=== PATIENT | female | born 1960 | race Caucasian/White ===

== ENCOUNTER → 2017-10-05 | Outpatient (CLI) | payer OTHER ==
[~2017-10-05] MED LIST: ALPR0.25 PO; CHOL1TAB42 PO; EPP3/2 IM; FEXO1TAB49 PO; GLC/500 PO; IRBE-37 PO; LEVO75TA PO; OXYM0.0592 NAE; PRENTAB26 PO; RANI150T85 PO; SPIR25TA PO; TAMS0.4C38 PO; TRAMTAB5 PO; VITAMIN B12 SC
== END | disposition home or self-care (01) ==
LOC: C.LABSPEC 17:03
PROVIDERS: ATTEND Urology
DX: N20.0 Calculus of kidney (principal); R31.29 Other microscopic hematuria

== ENCOUNTER 2019-09-02 22:25 | Observation (INO) ==
[2019-09-02 23:00] LABS: Appearance Urine Turbid (Clear); Color Urine Red; Sulfosalicylic Acid Urine Positive (Negative)
[2019-09-02 23:02] LABS: Protein Urine Positive (Negative)
[2019-09-02 23:03] LABS: Specific Gravity Urine 1.025 (1.000-1.060)
[2019-09-02] MEDS ORDERED: ACETAMINOPHEN 1,000 MG/100 ML VIAL IV STA (23:03)
[2019-09-02 23:05] LABS: RBC Urine >30 /hpf (0-4)
[2019-09-02 23:06] LABS: Calcium Oxalate Crystals Urine Present (None Prsent); Epithelial Cell Urine >30 /lpf (0-5); WBC Urine >30 /hpf (0-5)
[2019-09-02 23:07] LABS: Bacteria Urine 1+ (Negative)
[2019-09-02] MEDS ORDERED: SODIUM CHLORIDE 0.9% 1000ML 1,000 ML IV SCH (23:15)
[2019-09-03 00:08] LABS: Basophils # (auto) 0.01 K/uL (0-0.2); Basophils % (auto) 0.1 %; Eosinophils # (auto) 0.13 K/uL (0-0.5); Eosinophils % (auto) 1.5 %; Hematocrit (blood only) 35.7 % (37-47); Hemoglobin 11.2 g/dL (12.0-16.0); Immature Granulocytes % (auto) 1.1 %; Lymphocytes # (auto) 1.06 K/uL (1.2-3.4); Lymphocytes % (auto) 12.1 %; Mean Corpuscular Hemoglobin 31.5 pg (25-34); Mean Corpuscular Hgb Conc 31.4 g/dL (32-36); Mean Corpuscular Volume 100.6 fL (80-100); Mean Platelet Volume 8.9 fL (7.4-10.4); Monocytes # (auto) 0.87 K/uL (0.11-0.59); Monocytes % (auto) 9.9 %; Neutrophils # (auto) 6.59 K/uL (1.4-6.5); Neutrophils % (auto) 75.3 %; Nucleated RBC # (auto) 0.02 K/uL (0-0); Nucleated RBC % (auto) 0.2 %; Platelet Count 222 K/uL (130-400); RDW Coefficient of Variation 14.3 % (11.5-14.5); RDW Standard Deviation 51.9 fL (36.4-46.3); Red Blood Count 3.55 M/uL (4.2-5.4); White Blood Count 8.76 K/uL (4.8-10.8)
[2019-09-03 00:25] LABS: Albumin Level 3.2 gm/dl (3.4-5.0); BUN Creatinine Ratio 11.9 (10-20); Calcium 8.6 mg/dl (8.5-10.1); Creatinine Clr Calc Pharmacy 64.6 ml/min; Est GFR (African American) 60.1; Est GFR (Non-African American) 51.9; Potassium 3.8 mmol/L (3.5-5.1)
[2019-09-03 00:28] LABS: Albumin Globulin Ratio 0.9 (0.9-2); Bilirubin,Total 0.4 mg/dl (0.2-1); Globulin 3.7 gm/dl (2.5-4.0); Total Protein 6.9 gm/dl (6.4-8.2)
[2019-09-03] MEDS ORDERED: GENTAMICIN SULFATE 120 MG in DEXTROSE 5% 100 ML IV STA (00:38)
[2019-09-03] MEDS ORDERED: GENTAMICIN CONSULT ACTIVE PRN (00:38)
[2019-09-03] MEDS ORDERED: TAMSULOSIN HCL 0.4 MG CAP PO ONE (00:48)
[2019-09-03] MEDS ORDERED: PHENAZOPYRIDINE HCL 200 MG TAB PO STA (00:48)
[2019-09-03] MEDS ORDERED: KETOROLAC TROMETHAMINE 15 MG/ML VIAL IV STA (00:48)
[2019-09-03] MEDS ORDERED: SODIUM CHLORIDE 0.9% 1000ML 1,000 ML IV SCH (02:45)
[2019-09-03] MEDS ORDERED: POLYETHYLENE (MIRALAX) 17 GM PACK PO PRN (03:18)
[2019-09-03] MEDS ORDERED: MAGNESIUM HYDROXIDE SUSP 30 ML UDC PO PRN (03:18)
[2019-09-03] MEDS ORDERED: ALUMINUM/MAGNESIUM SUSP 30 ML UDC PO PRN (03:18)
[2019-09-03] MEDS ORDERED: ONDANSETRON INJ 2 MG/ML 2 ML VIAL IV PRN (03:18)
--- NOTE | 2019-09-03 03:41 | History & Physical Report ---
Date of Service September 03, 2019 Assessment & Plan (1) Kidney stones: 58 yo F w/ pMHx. of GERD, HTN, hypothyroidism, PCOS, sleep apnea, PMR, TMJ, shaquille's duct cyst and nephrolithiasis s/p lithotripsy, presents with unresolved urinary symptoms, no leukocytosis, and reassuring vitals. Concern for post op ureteral stent infection. Patient has a notable medication allergy history to Penicillins, Cephalosporins and Sulfa drugs. concern for post operative stent infection, cr. 1.16 - IVF w/ NSS 125 ml/hr (2L) - Gentamicin was started in the ER per Dr. Pfeiffer but was stopped due to concern for nephrotoxicity - started Aztreonam - continue Ciprofloxacin - continue Tamsulosin - consulted urology - NPO for potential procedure - no anticoagulation ordered due to potential for procedure tomorrow - urine cultures ordered, pending - follow AM BMP HTN - antihypertensive medication held - continue to monitor and adjust as necessary Hypothyroidism - continue home levothyroxine PMR - continue prednisone PCOS - discontinued Metformin while inpatient elevated blood glucose - A1C in the AM - continue to monitor DVT: SCD Diet: NPO dispo: admit med/surg with tele (2) Acute UTI: History of Present Illness Chief Complaint: subjective fever and tachycardia Primary Care Provider: DO Art Quiroga Zackery is a 58 yo F w/ a pMHx. of GERD, HTN, hypothyroid, PCOS, sleep apnea, PMR, TMJ, shaquille's duct cyst and nephrolithiasis s/p lithotripsy on 08/[address] Kolb. After the procedure she had bleeding consistent with a period, and this improved after over the week following the procedure. She has had incontinence since the procedure and has been wearing a "depends" since the procedure. She has had urgency, and polyuria. She has had continued pain at the end of urination that has been constant since the procedure. Her urine is discolored due to medication but does not notice any change in the smell of her urine. The plan was to have the stent removed this week. She had an episode where her temp. was 100F after a shower and her HR with her watch was 110-120 and then went up to 130. She had called urology and was instructed to come in to the ER. Allergies Allergy/AdvReac Type Severity Reaction Status Date / Time Cephalosporins Allergy Severe Anaphylaxis Verified 09/02/19 23:25 cefuroxime Allergy Unknown ANAPHYLAXIS Verified 09/02/19 23:25 Iodinated Contrast Media Allergy Unknown Hives Verified 09/02/19 23:25 latex Allergy Unknown Unknown Verified 09/02/19 23:25 Penicillins Allergy Unknown Hives Verified 09/02/19 23:25 Sulfa (Sulfonamide Allergy Unknown Hives Verified 09/02/19 23:25 Antibiotics) adhesive Allergy Redness of Verified 09/02/19 23:25 Skin Home Medications Home Medications Medication Instructions Recorded Confirmed Type irbesartan 75 mg PO QAM 03/01/18 09/02/19 History spironolactone 25 mg PO BID 03/01/18 09/02/19 History tamsulosin 0.4 mg PO HS PRN 08/23/19 09/02/19 History ciprofloxacin HCl [Cipro] 500 mg PO BID #6 tab 08/28/19 09/02/19 Rx PNV,calcium [id number] acid 1 tab PO DAILY 09/02/19 09/02/19 History [ Vitamin Plus Low Iron] alprazolam 0.5 mg PO QID 09/02/19 09/02/19 History cyanocobalamin (vitamin B-12) 1,000 mcg IM UD 09/02/19 09/02/19 History duloxetine 30 mg PO DAILY 09/02/19 09/02/19 History levothyroxine [Synthroid] 75 mcg PO DAILY 09/02/19 09/02/19 History meloxicam 15 mg PO DAILY 09/02/19 09/02/19 History metformin 1,000 mg PO BID 09/02/19 09/02/19 History prednisone 5 mg PO DAILY 09/02/19 09/02/19 History tramadol 50 mg tablet 50 mg PO Q8H PRN #20 tab 09/02/19 09/02/19 Rx Past Med/Surg History Medical History Anxiety Chronic steroid use GERD (gastroesophageal reflux disease) Hypertension Hypothyroidism Kidney stones PCOS (polycystic ovarian syndrome) taking metformin Polymyalgia rheumatica Sleep apnea cpap 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 Has pain in neck and stiffness in jaw, but it has never locked. Surgical History History of arthroscopy right knee History of cholecystectomy History of colonoscopy History of cystoscopy History of esophagogastroduodenoscopy (EGD) History of lithotripsy History of mandibular surgery was in accident and had surgery to jaw History of right knee joint replacement History of sinus surgery 05/2018 - [place] History of tonsillectomy and adenoidectomy History of total knee replacement left Hx of dilation and curettage x 2 Family History Father Diabetes Brother Bile duct cancer Other No family history of adverse response to anesthesia Social History Preferred Language: Samoan Communication Ability: Effective Visual Impairment: No Limitations Director Script Required: No Beliefs That Will Affect Care: None Current Living Situation: Spouse Other Information That Helps Us Care for You: No Feels Safe at Home: Yes Safety Concerns: Feels Safe At This Time Smoking Status: Former smoker Cigarettes Per Day: quit 1987 ; Do You Dip or Chew Tobacco: No ; Second Hand Exposure: No ; Hx Alcohol Use: Yes Alcohol type: wine Hx Substance Use: No Review of Systems Review of Systems: Constitutional: denies nausea, vomiting, fatigue admits diaphoresis Head: admits some confusion Neurologic: denies syncope or presyncope ENT: admits tinnitus Cardiac: denies chest pain admits palpitations pulm: denies cough, shortness of breath, or sputum production GI: denies constipation admits diarrhea : admits urgency, polyuria, dysuria Physical Exam Constitutional: WD/WN, vitals as above Eyes: PERRL, conjunctivae normal, anicteric sclerae ENMT: external ear and nose normal, oropharynx normal Neck: normal visual inspection Respiratory: normal respiratory effort, lungs clear to auscultation Cardiovascular: RRR, no murmur, no edema Gastrointestinal (Abdomen): normal bowel sounds, soft, nontender, no hepatosplenomegaly Psychiatric: A+Ox3, euthymic affect Genitourinary: + CVA tenderness (right) Results & Data Results & Data ([facility]) Vital Signs (Past 12 Hours) Vital Signs Temp Pulse Pulse Resp BP BP Pulse Ox 09/03/19 02:48 70 18 140/76 92 09/03/19 01:30 75 18 124/80 93 09/03/19 00:04 71 19 146/90 H 90 09/02/19 22:30 36.4 C L 96 H 20 163/[address] A/P: bilateral calyceal renal stones right sided hydronephrosis right sided nephroureteral stent UA: turbid urine with + protein Code Status & VTE Plan VTE Prophylaxis Plan VTE Prophylaxis will be ordered: Yes Supervising Physician Co-Signing Physician Notes Attending addendum: I have physically seen this patient, have supervised the medical residents activities, and agree with the H&P unless as otherwise noted. Assessment and Plan: Right ureteral stent complication/UTI/mild right hydronephrosis- N.p.o. for possible procedure NSS 125 mils per hour. Gentamicin IV already ordered by Dr. Pfeiffer from urology. Patient has already been on 3 potentially nephrotoxic agents: Irbesartan, meloxicam, spironolactone, and has been given Toradol in the ED. Placed on atrium 1 g IV every 8 hours. Tamsulosin 0.4 mg p.o. daily. Follow urine culture and sensitivities. Hypertension- Hold Irbesartan and spironolactone as noted. PMR- Continue prednisone for now, if stays in the hospital for more than 24 hours would recommend stress dose steroids at that time. Remainder of orders and notations as noted. Resident Activity Tracking Resident Involvement: Resident Care Provided Care Provided: Adult Hospital Medicine
[2019-09-03] MEDS ORDERED: TAMSULOSIN HCL 0.4 MG CAP PO PRN (04:45)
--- NOTE | 2019-09-03 04:47 | Emergency Department Note ---
History of Present Illness General Chief complaint: Referred by Doctor Stated complaint: SURGERY ON TUESDAY, HIGH HEART RATE, FEVER Time Seen by Provider: 09/02/19 22:44 History of Present Illness Maximum Pain Intensity: 7 This is a 58-year-old female presenting to the emergency department for evaluation of fever and tachycardia that began tonight. She has a recent history of surgery 5 days ago. The patient had complicated ureteral calculi that required removal and stenting, as well as a perivaginal cyst that was removed at the same time. The patient states that he felt slightly unwell after surgery, and continues to be this way. She was on Cipro for 3 days after the procedure, but has completed the antibiotic. The patient states that she got in the shower tonight, got out, and felt very hot. She took her temperature, and it was over 100 F. She does wear a fit bit watch, which showed her with persistent tachycardia in the 130s and 140s. The patient contacted her on-call surgical team, and was referred to the ER for further management. The patient has some general fatigue and body aches but no distinct pain. She is taking Azo to help with the stent discomfort. She rates her current pain a 7/10. Home Medications Home Medications Medication Instructions Recorded Confirmed Type irbesartan 75 mg PO QAM 03/01/18 09/02/19 History spironolactone 25 mg PO BID 03/01/18 09/02/19 History tamsulosin 0.4 mg PO HS PRN 08/23/19 09/02/19 History ciprofloxacin HCl [Cipro] 500 mg PO BID #6 tab 08/28/19 09/02/19 Rx PNV,calcium [id number] acid 1 tab PO DAILY 09/02/19 09/02/19 History [ Vitamin Plus Low Iron] alprazolam 0.5 mg PO QID 09/02/19 09/02/19 History cyanocobalamin (vitamin B-12) 1,000 mcg IM UD 09/02/19 09/02/19 History duloxetine 30 mg PO DAILY 09/02/19 09/02/19 History levothyroxine [Synthroid] 75 mcg PO DAILY 09/02/19 09/02/19 History meloxicam 15 mg PO DAILY 09/02/19 09/02/19 History metformin 1,000 mg PO BID 09/02/19 09/02/19 History prednisone 5 mg PO DAILY 09/02/19 09/02/19 History tramadol 50 mg tablet 50 mg PO Q8H PRN #20 tab 09/02/19 09/02/19 Rx Allergies Allergy/AdvReac Type Severity Reaction Status Date / Time Cephalosporins Allergy Severe Anaphylaxis Verified 09/02/19 23:25 cefuroxime Allergy Unknown ANAPHYLAXIS Verified 09/02/19 23:25 Iodinated Contrast Media Allergy Unknown Hives Verified 09/02/19 23:25 latex Allergy Unknown Unknown Verified 09/02/19 23:25 Penicillins Allergy Unknown Hives Verified 09/02/19 23:25 Sulfa (Sulfonamide Allergy Unknown Hives Verified 09/02/19 23:25 Antibiotics) adhesive Allergy Redness of Verified 09/02/19 23:25 Skin Past Med/Surg History Medical History Anxiety Chronic steroid use GERD (gastroesophageal reflux disease) Hypertension Hypothyroidism Kidney stones PCOS (polycystic ovarian syndrome) taking metformin Polymyalgia rheumatica Sleep apnea cpap 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 Has pain in neck and stiffness in jaw, but it has never locked. Surgical History History of arthroscopy right knee History of cholecystectomy History of colonoscopy History of cystoscopy History of esophagogastroduodenoscopy (EGD) History of lithotripsy History of mandibular surgery was in accident and had surgery to jaw History of right knee joint replacement [place] of [place] surgery 05[place]2018 [place] History of tonsillectomy and adenoidectomy History of total knee replacement left Hx of dilation and curettage x 2 Family History Father Diabetes Brother Bile duct cancer Other No family history of adverse response to anesthesia Social History Preferred Language: Korean Communication Ability: Effective Visual Impairment: No Limitations Data Developer Required: No Beliefs That Will Affect Care: None Current Living Situation: Spouse Other Information That Helps Us Care for You: No Feels Safe at Home: Yes Safety Concerns: Feels Safe At This Time Smoking Status: Former smoker Cigarettes Per Day: quit 1987 ; Do You Dip or Chew Tobacco: No ; Second Hand Exposure: No ; Hx Alcohol Use: Yes Alcohol type: wine Hx Substance Use: No Review of Systems A total of 10 systems reviewed and were otherwise negative Physical Exam Vital Signs Vital Signs - 24 hr 09/02/19 22:30 09/02/19 23:03 09/03/19 00:04 Temperature 36.4 C L Temperature Source Oral Pulse Rate 96 H Pulse Rate [Apical] 71 Respiratory Rate 20 19 Respiratory Effort / Characteristics Non-Labored Respiratory Depth Normal Blood Pressure 163/93 H Blood Pressure [Right Arm] 146/90 H Blood Pressure Mean 116 Blood Pressure Mean [Right Arm] 108 Pulse Oximetry 92 90 Oxygen Delivery Method Room Air Room Air Room Air Sepsis Recent Fever Within 48 Hours No Sepsis New/Unexplained Change in Mental Status No Sepsis Action Taken by Nursing No Action Required 09/03/19 01:30 09/03/19 02:48 Temperature Temperature Source Pulse Rate Pulse Rate [Apical] 75 70 Respiratory Rate 18 18 Respiratory Effort / Characteristics Respiratory Depth Blood Pressure Blood Pressure [Right Arm] 124/80 140/76 Blood Pressure Mean Blood Pressure Mean [Right Arm] 94 97 Pulse Oximetry 93 92 Oxygen Delivery Method Room Air Room Air Sepsis Recent Fever Within 48 Hours Sepsis New/Unexplained Change in Mental Status Sepsis Action Taken by Nursing VITALS: Vitals are noted on the nurse's note and reviewed by myself. Vital signs stable. GENERAL: Well-developed, well-nourished, white female, who is in no acute dist ress and resting comfortably. Patient is cooperative with the examination. HEAD: Normocephalic atraumatic. EYES: Pupils equal round and reactive to light and accommodation. Conjunctivae without injection, sclerae without icterus. Extraocular movements intact. NOSE: Patent, turbinates without inflammation or discharge. MOUTH: Mucous membranes moist. Tonsils are not enlarged. Pharynx without erythema, blood, or exudate. Uvula midline. Airway patent. NECK: Supple without nuchal rigidity. No lymphadenopathy. No thyromegaly. Cervical spine is nontender. HEART: Regular rate and rhythm without murmurs gallops or rubs. LUNGS: Clear to auscultation bilaterally without wheezes, rales or rhonchi. No retractions or accessory muscle use. ABDOMEN: Positive normal bowel sounds x 4. Soft, nontender, without masses or organomegaly. No guarding or rebound tenderness. MUSCULOSKELETAL: No muscle atrophy, erythema, or edema noted. Full range of motion in all extremities. Course Administered Medications Discontinued Medications Sodium Chloride (Nss 1000ml) 1,000 mls @ 999 mls/hr IV .Q1H1M PEDRITO Stop: 09/03/19 00:15 Last Infusion: 09/03/19 01:04 Dose: 0 mls/hr Documented by: [id number] Admin: 09/03/19 00:02 Dose: 999 mls/hr Documented by: [id number] Acetaminophen (Ofirmev) 1,000 mg in 100 mls @ 400 mls/hr IV NOW STA Stop: 09/02/19 23:17 Last Infusion: 09/03/19 00:19 Dose: 0 mls/hr Documented by: [id number] Admin: 09/03/19 00:02 Dose: 400 mls/hr Documented by: [id number] Gentamicin Sulfate 120 mg/ (Dextrose) 103 mls @ 100 mls/hr IV ONCE STA; Protocol Stop: 09/03/19 01:39 Last Infusion: 09/03/19 02:08 Dose: 0 mls/hr Documented by: [id number] Admin: 09/03/19 01:04 Dose: 100 mls/hr Documented by: [id number] Sodium Chloride (Nss 1000ml) 1,000 mls @ 999 mls/hr IV .Q1H1M PEDRITO Stop: 09/03/19 03:45 Last Infusion: 09/03/19 04:47 Dose: 999 mls/hr Documented by: [id number] Admin: 09/03/19 02:47 Dose: 999 mls/hr Documented by: [id number] Ketorolac Tromethamine (Toradol) 15 mg IV NOW STA Stop: 09/03/19 00:49 Last Admin: 09/03/19 01:04 Dose: 15 mg Documented by: [id number] Phenazopyridine HCl (Pyridium) 200 mg PO NOW STA Stop: 09/03/19 00:49 Last Admin: 09/03/19 01:04 Dose: 200 mg Documented by: [id number] Tamsulosin HCl (Flomax) 0.4 mg PO NOW ONE Stop: 09/03/19 00:49 Last Admin: 09/03/19 01:04 Dose: 0.4 mg Documented by: [id number] Medical Decision Making Differential Diagnosis Differential diagnosis: Etiologies such as postoperative infection, sepsis, viral syndrome, otitis, pharyngitis, pneumonia, influenza, meningitis, urinary tract infection, septic arthritis, soft tissue infectious process, intra-abdominal process, sepsis, b acteremia, as well as others were entertained. Laboratory Data Result diagrams: 09/02/19 23:55 09/02/19 23:55 Lab Results 09/02/19 09/02/19 09/02/19 Range/Units 22:43 23:55 23:55 WBC 8.76 (4.8-10.8) K/uL RBC 3.55 L (4.2-5.4) M/uL Hgb 11.2 L (12.0-16.0) g/dL Hct 35.7 L (37-47) % MCV 100.6 H (80-100) fL MCH 31.5 (25-34) pg MCHC 31.4 L (32-36) g/dL RDW Std Deviation 51.9 H (36.4-46.3) fL RDW Coeff of Yary 14.3 (11.5-14.5) % Plt Count 222 (130-400) K/uL MPV 8.9 (7.4-10.4) fL Immature Gran % (Auto) 1.1 % Neut % (Auto) 75.3 % Lymph % (Auto) 12.1 % Island % (Auto) 9.9 % Eos % (Auto) 1.5 % Baso % (Auto) 0.1 % Immature Gran # (Auto) 0.10 H (0.00-0.02) K/uL Neut # (Auto) 6.59 H (1.4-6.5) K/uL Lymph # (Auto) 1.06 L (1.2-3.4) K/uL Island # (Auto) 0.87 H (0.11-0.59) K/uL Eos # (Auto) 0.13 (0-0.5) K/uL Baso # (Auto) 0.01 (0-0.2) K/uL Absolute Nucleated RBC 0.02 H (0-0) K/uL Nucleated RBC % (auto) 0.2 % Sodium 143 (136-145) mmol/L Potassium 3.8 (3.5-5.1) mmol/L Chloride 110 H (98-107) mmol/L Carbon Dioxide 26 (21-32) mmol/L Anion Gap 7.0 (3-11) BUN 14 (7-18) mg/dl Creatinine 1.16 (0.6-1.2) mg/dl Est Cr Clr Drug Dosing 64.6 ml/min Est GFR ( Amer) 60.1 Est GFR (Non-Af Amer) 51.9 BUN/Creatinine Ratio 11.9 (10-20) Glucose 145 H (70-99) mg/dl Lactate (0.4-2.0) mmol/L Calcium 8.6 (8.5-10.1) mg/dl Total Bilirubin 0.4 (0.2-1) mg/dl AST 13 L (15-37) U/L ALT 26 (12-78) U/L Alkaline Phosphatase 88 (45-117) U/L Total Protein 6.9 (6.4-8.2) gm/dl Albumin 3.2 L (3.4-5.0) gm/dl Globulin 3.7 (2.5-4.0) gm/dl Albumin/Globulin Ratio 0.9 (0.9-2) Urine Color Red Urine Appearance Turbid A (Clear) Urine pH (4.5-7.5) Ur Specific [place] 1.025 (1.000-1.060) Urine Protein Positive H (Negative) Urine Glucose (UA) (Negative) Urine Ketones (Negative) Urine Blood (Negative) Urine Nitrite (Negative) Urine Bilirubin (Negative) Urine Urobilinogen (Negative) Ur Leukocyte Esterase (Negative) Urine RBC >30 H (0-4) /hpf Urine WBC >30 H (0-5) /hpf Ur Epithelial Cells >30 H (0-5) /lpf Calcium Oxalate Crystal Present A (None Prsent) Urine Bacteria 1+ H (Negative) 09/02/19 09/03/19 Range/Units 23:55 01:56 WBC (4.8-10.8) K/uL RBC (4.2-5.4) M/uL Hgb (12.0-16.0) g/dL Hct (37-47) % MCV (80-100) fL MCH (25-34) pg MCHC (32-36) g/dL RDW Std Deviation (36.4-46.3) fL RDW Coeff of Yary (11.5-14.5) % Plt Count (130-400) K/uL MPV (7.4-10.4) fL Immature Gran % (Auto) % Neut % (Auto) % Lymph % (Auto) % Island % (Auto) % Eos % (Auto) % Baso % (Auto) % Immature Gran # (Auto) (0.00-0.02) K/uL Neut # (Auto) (1.4-6.5) K/uL Lymph # (Auto) (1.2-3.4) K/uL [place] # (Auto) (0.11-0.59) K/uL Eos # (Auto) (0-0.5) K/uL Baso # (Auto) (0-0.2) K/uL Absolute Nucleated RBC (0-0) K/uL Nucleated RBC % (auto) % Sodium (136-145) mmol/L Potassium (3.5-5.1) mmol/L Chloride (98-107) mmol/L Carbon Dioxide (21-32) mmol/L Anion Gap (3-11) BUN (7-18) mg/dl Creatinine (0.6-1.2) mg/dl Est Cr Clr Drug Dosing ml/min Est GFR ( Amer) Est GFR (Non-Af Amer) BUN/Creatinine Ratio (10-20) Glucose (70-99) mg/dl Lactate 3.1 H* 3.0 H* (0.4-2.0) mmol/L Calcium (8.5-10.1) mg/dl Total Bilirubin (0.2-1) mg/dl AST (15-37) U/L ALT (12-78) U/L Alkaline Phosphatase (45-117) U/L Total Protein (6.4-8.2) gm/dl Albumin (3.4-5.0) gm/dl Globulin (2.5-4.0) gm/dl Albumin/Globulin Ratio (0.9-2) Urine Color Urine Appearance (Clear) Urine pH (4.5-7.5) Ur Specific [place] (1.000-1.060) Urine Protein (Negative) Urine Glucose (UA) (Negative) Urine Ketones (Negative) Urine Blood (Negative) Urine Nitrite (Negative) Urine Bilirubin (Negative) Urine Urobilinogen (Negative) Ur Leukocyte Esterase (Negative) Urine RBC (0-4) /hpf Urine WBC (0-5) /hpf Ur Epithelial Cells (0-5) /lpf Calcium Oxalate Crystal (None Prsent) Urine Bacteria (Negative) Imaging Data Radiologist's Impression: Preliminary Findings Only See Final Report For Complete Findings CT ABDOMEN & PELVIS Without Contrast: Direct comparison is made with prior study from July 18, 2019. Liver, spleen, and pancreas appear normal. Stomach, small bowel, and colon appear normal. The appendix is not specifically visualized. There are bilateral calyceal renal stones. There is a right-sided nephroureteral stent with normal loops formed in the renal pelvis and the bladder. There is mild right-sided hydronephrosis. Uterus appears normal. Vascular structures appear normal. Impression: Interval placement of right-sided nephroureteral stent. Nephrolithiasis Blood Pressure Blood Pressure Disposition: elevated BP felt to be situational MDM Narrative Physical exam and history were performed. Nursing notes, EMR, and Medication List were personally reviewed. Patient appears to have fever and tachycardia bringing her to the ER. She does have a recent surgery performed by Dr. Kolb. IV access was established and labs were obtained. The patient was hydrated with normal saline. She was given IV Toradol and IV Tylenol for comfort. Blood cultures and lactic were gathered. The patient's blood work is as above and was reviewed. She does not have a significantly elevated white blood cell count. She is mildly anemic at 11.2. BUN and creatinine are normal. Transaminases are not diagnostic. The patient's lactic acid is elevated with blood cultures pending. Repeat lactic was perform ed and is also elevated above 3. Patient's urine is without nitrates or esterase, but does have blood and calcium oxalate, likely from her stent. I did discuss the case with the on-call urologist, Dr. Millan. The patient has extensive allergies including penicillins, cephalosporins, and sulfas. She has already been on Cipro. The patient certainly could have signs of early sepsis likely from a genitourinary etiology, and gentamicin was recommended. The patient was given an IV dose here in the ER. CT scan was also performed at this time, reviewed by myself and radiology, and without obvious acute process such as abscess or free air. Overall the patient does not appear well for discharge home. There is concern for postoperative infection, and she may need continued antibiosis. The case was discussed with the on-call hospitalist, Dr. Schafer, who agreed to evaluate the patient here in the ER. Please see the hospitalist dictation for further patient course, plan, and disposition. The chart was completed utilizing [employer] Speech Voice Recognition Software. Grammatical errors, random word insertions, pronoun errors, and incomplete sentences are an occasional consequence of this system due to software limitations, ambient noise, and hardware issues. Any formal questions or concerns about the content, text, or information contained within the body of this dictation should be directly addressed to the provider for clarification. . Impression & Plan Postoperative fever, Post-operative pain, Elevated lactic acid level Discharge Plan Visit Data *Final* Discharge Date/Time: 09/03/19 04:07 Chief Complaint: Referred by Doctor Stated Complaint: SURGERY ON TUESDAY, HIGH HEART RATE, FEVER ED Provider: Lee Hopson ED Midlevel Provider: Fitz Appiah Discharge Problem: Postoperative fever, Post-operative pain, Elevated lactic acid level Patient Disposition: Admitted As Inpatient Discharge Instructions Interventions: ED Discharge Assessment Last Done: 09/03/19 04:07
[2019-09-03] MEDS: SODIUM CHLORIDE 0.9% 1000ML 1,000 ML IV SCH ×2 (05:57→12:38)
[2019-09-03] MEDS: ACETAMINOPHEN 325 MG TAB PO PRN ×2 (05:58→21:24)
[2019-09-03] MEDS: LEVOTHYROXINE SODIUM 75 MCG TABLET PO SCH (06:20)
--- NOTE | 2019-09-03 07:40 | CT Scan Report ---
ABDOMEN AND PELVIS CT WITHOUT CONTRAST CT DOSE: 1340.36 mGy.cm HISTORY: post operative fever TECHNIQUE: Multiaxial CT images of the abdomen and pelvis were performed without contrast. A dose lo wering technique was utilized adhering to the principles of ALARA. COMPARISON STUDY: Abdomen and pelvis CT 07/18/2019. FINDINGS: A few bibasilar linear densities consistent with subsegmental atelectasis. No pneumoperiton eum. No pneumatosis. No suspicious lytic are blastic osseous lesions. Cholecystectomy. Hepatic steato sis. The unenhanced spleen, adrenal glands, and pancreas are unremarkable. No retroperitoneal lymphad enopathy. Mild calcified plaque within the normal caliber abdominal aorta. Bilateral nephrolithiasis. No hydronephrosis. Interval placement of a right ureteral stent which appears in good position. At t he level of the iliac vessels appears to be a 3 mm distal right ureteral stone best seen on image 313 . This is adjacent to the ureteral stent. Mild fullness within the right renal collecting system with out marcie hydronephrosis. There is mild right urothelial thickening and mild right periureteral edema . This could be due to placement of the ureteral stent. A superimposed infectious process cannot be e xcluded. No bladder wall thickening. The uterus and bilateral adnexa are unremarkable. Suboptimal cassia luation for bowel pathology due to the lack of intravenous and oral contrast. However, there is no de finite bowel wall thickening or obstruction. Normal appendix. IMPRESSION: 1. Interval placement of right sided ureteral stent which appears in good position. There is a 3 mm d istal right ureteral stone adjacent to the stent. There is mild fullness within the right renal colle cting system without marcie hydronephrosis. 2. There is mild right urothelial thickening and mild right periureteral edema. This could be due to placement of the ureteral stent. A superimposed infectious process cannot be excluded. 3. Bilateral nephrolithiasis. 4. No definite bowel wall thickening or obstruction. 5. Normal appendix. ACT 112: Negative or not required by law. Electronically signed by: Chad Mccormick M.D. 09/03/2019 7:39 AM
[2019-09-03] MEDS ORDERED: KETOROLAC TROMETHAMINE 15 MG/ML VIAL IV ONE (07:45)
--- NOTE | 2019-09-03 07:51 | XRay Report ---
KUB HISTORY: post op fever. COMPARISON: KUB 03/27/2018. FINDINGS: The bowel gas pattern is unremarkable. There are no dilated loops of small bowel to suggest an obstruction. Bilateral nephrolithiasis. No pneumoperitoneum or pneumatosis. Prior cholecystectom y. A right ureteral stent is likely in good position. Calcifications in the deep pelvis favor phlebol iths. IMPRESSION: 1. Bilateral nephrolithiasis. 2. A right ureteral stent appears in good position. ACT 112: Negative or not required by law. Electronically signed by: Chad Mccormick M.D. 09/03/2019 7:50 AM
--- NOTE | 2019-09-03 07:51 | XRay Report ---
XR chest 1V portable HISTORY: post op fever COMPARISON: None. FINDINGS: The lungs are clear. Cardiac silhouette is normal in size. No pleural effusions. No pneumot horax. IMPRESSION: No acute process. ACT 112: Negative or not required by law. Electronically signed by: Chad Mccormick M.D. 09/03/2019 7:49 AM
[2019-09-03] MEDS: ALPRAZolam 0.5 MG TABLET PO SCH ×4 (08:04→21:21)
--- NOTE | 2019-09-03 10:00 | Urology Consultation ---
Date of Consultation September 03, 2019 Assessment & Plan (1) Postoperative fever: Patient admitted undergoing supportive care and IV hydration. Patient's complicated medical and surgical history was reviewed. Discussed at length different options with patient. Discussed imaging. Patient's imaging was reviewed interpreted by myself. Plan she does have stent in place. Appears to have a small stone fragment which is along the ureter. Patient also had excision of lesion of the vagina that was found to be likely an infected cyst. Patient is undergoing broad-spectrum IV antibiotics. Has significant issues with especially penicillins and sulfa drugs which caused significant hives/anaph ylaxis. Was placed on gentamicin in the ER. Is undergoing management of her antibiotic coverage to get good broad-spectrum coverage. This can be de- escalated over time and awaiting future cultures and results. Will likely need 1 to 2 weeks of antibiotics and due to patient's allergies and previous cultures may need to have IV antibiotics. Patient may need to be set up with access for IV antibiotics to be done as an outpatient if it is found to be needed. Agree with plans for supportive care. Agree with hydration. Agree with close monitoring and management. Encourage patient to increase activity and to advance diet as tolerated. We will plan to continue follow-up Vaginal pain. May improve with topical lidocaine or steroid. Premarin would also be option to improve healing due to history of atrophic vaginitis. (2) Post-operative pain: History of Present Illness Attending Physician: Dennis Murry, History of Present Illness New consultation for patient with UTI/Pyelo, discomfort, and ill feelings. Patient had a stone treatment and excision of vaginal cyst completed earlier in the week. Had been doing well and overall had been improving. Over the last 1 to 2 days had worsening issues with tachycardia and fever. Became more ill. Developed major bowel issues and concerns. Patient developed new sudden onset of pain into flank going down and radiating into groin and back in waves comes and goes. Can be severe at times. Discussed and reviewed patient's family history for any history of issues, infections, and disease. Also, discussed patient's medical/surgery history especially related to any history of urinary issues or stone disease. Patient was admitted and is undergoing observation with broad spectrum IV antibiotics. Allergies Allergy/AdvReac Type Severity Reaction Status Date / Time Cephalosporins Allergy Severe Anaphylaxis Verified 09/02/19 23:25 cefuroxime Allergy Unknown ANAPHYLAXIS Verified 09/02/19 23:25 Iodinated Contrast Media Allergy Unknown Hives Verified 09/02/19 23:25 latex Allergy Unknown Unknown Verified 09/02/19 23:25 Penicillins Allergy Unknown Hives Verified 09/02/19 23:25 Sulfa (Sulfonamide Allergy Unknown Hives Verified 09/02/19 23:25 Antibiotics) adhesive Allergy Redness of Verified 09/02/19 23:25 Skin Home Medications Home Medications Medication Instructions Recorded Confirmed Type irbesartan 75 mg PO QAM 03/01/18 09/02/19 History spironolactone 25 mg PO BID 03/01/18 09/02/19 History tamsulosin 0.4 mg PO HS PRN 08/23/19 09/02/19 History ciprofloxacin HCl [Cipro] 500 mg PO BID #6 tab 08/28/19 09/02/19 Rx PNV,calcium 23-sylv-dttfu acid 1 tab PO DAILY 09/02/19 09/02/19 History [ Vitamin Plus Low Iron] alprazolam 0.5 mg PO QID 09/02/19 09/02/19 History cyanocobalamin (vitamin B-12) 1,000 mcg IM UD 09/02/19 09/02/19 History duloxetine 30 mg PO DAILY 09/02/19 09/02/19 History levothyroxine [Synthroid] 75 mcg PO DAILY 09/02/19 09/02/19 History meloxicam 15 mg PO DAILY 09/02/19 09/02/19 History metformin 1,000 mg PO BID 09/02/19 09/02/19 History prednisone 5 mg PO DAILY 09/02/19 09/02/19 History tramadol 50 mg tablet 50 mg PO Q8H PRN #20 tab 09/02/19 09/02/19 Rx Patient History Medical History Anxiety Chronic steroid use GERD (gastroesophageal reflux disease) Hypertension Hypothyroidism Kidney stones PCOS (polycystic ovarian syndrome) taking metformin Polymyalgia rheumatica Sleep apnea cpap 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 Has pain in neck and stiffness in jaw, but it has never locked. Surgical History History of arthroscopy right knee History of cholecystectomy History of colonoscopy History of cystoscopy History of esophagogastroduodenoscopy (EGD) History of lithotripsy History of mandibular surgery was in accident and had surgery to jaw History of right knee joint replacement History of sinus surgery 05/2018 - [place] History of tonsillectomy and adenoidectomy History of total knee replacement left Hx of dilation and curettage x 2 Family History Father Diabetes Brother Bile duct cancer Other No family history of adverse response to anesthesia Social History Preferred Language: Azeri Communication Ability: Effective Visual Impairment: No Limitations Honeycomb 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 Patient is well nourished and well kept. Morbid obesity HEENT: Normocephalic Atraumatic. Inspection normal. Cranial Nerves 2-12 Grossly intact. Nares are clear. Neck is supple. Normal inspection of face. Normal inspection of neck. Neurologic: No deficits on inspection. Baseline for motor function and sensory. Psychologic: Normal affect. Respiratory: Nonlabored. No use of accessory muscles. No tachypnea or dyspnea. Cardiovascular: No tachycardia Skin: Brooks and Dry. No rashes or visible lesions. Extremities: Moving without issues. No motor deficits on inspection Lymphatics: No edema Abdomen: Soft Non-distended. No acites. No rebound or guarding. obesity. Results & Data Vital Signs (Past 12 Hours) Vital Signs Temp Pulse Pulse Resp BP BP Pulse Ox 09/03/19 07:22 36.9 C 67 20 144/87 H 94 09/03/19 04:50 36.4 C L 70 20 152/90 H 92 09/03/19 04:00 71 20 163/98 H 92 06/22/20 02:48 70 18 140/76 92 09/03/19 01:30 75 18 124/80 93 09/03/19 00:04 71 19 146/90 H 90 09/02/19 22:30 36.4 C L 96 H 20 163/93 H 92 PG Care Time/CCT Total # of Minutes Spent Total Time Spent with Patient: Total time spent is greater than 50% in coordination of care (as documented) at patient's floor/unit and/or counseling patient: Coding Level of Care Code 54792 Inpt Consult Level 5 Diagnoses Postoperative fever R50.82 Post-operative pain G89.18
--- NOTE | 2019-09-03 10:06 | Hospitalist Progress Note ---
Date of Service September 03, 2019 Assessment & Plan (1) Kidney stones: Ms. Vizcarra is a 58 yo F who underwent cystoscopy, laser lithotripsy, and R ureteral stent placement on 08/28/[address] Kolb who was admitted for persistent dysuria and urinary urgency. - there was initial concern for post operative stent infection given persistent urinary symptoms and subjective report of fever and tachycardia by patient. - on admission patient afebrile, vitals otherwise stable. WBC WNL, UA 1+ for bacteria, >30 WBCs, neg for nitrites and LE - urine and blood cultures pending - She was given 1 dose of Gentamicin in the ED and continued on Cipro 500mg, BID. Cipro is providing full spectrum gram negative coverage - KUB showing good placement of right stent; A/P CT scan confirming proper stent placement with right periureteral edema although no obvious hydronephrosis - it is possible urinary symptoms are secondary to stent placement itself rather than infection - continue flomax - urology consulted, appreciate recs - BMP in AM Antibiotic Allergies - Patient has several concerning antibiotic allergies listed on her chart, including anaphylaxis with cephalosporins, and hives with penicillin and sulfonamides - unclear as to whether these represent true allergies; will obtain history to clarify - if they are true allergies, consider outpatient allergy referral for de- sensitization HTN - continue home dose Irbesartan Hypothyroidism - continue home levothyroxine PMR - continue home prednisone PCOS - holding Metformin while inpatient Elevated blood glucose - A1C at 5.8, in pre-diabetic range - may be secondary to chronic steroid therapy - patient on metformin 1,000mg for PCOS; consider increasing - diet/lifestyle counseling DVT: SCDs Diet: Heart Healthy, Diabetic dispo: med/surg Code: Full (2) Acute UTI: Admission and Anticipated Discharge Date Admission Date: September 03, 2019 Supervising Physician Co-Signing Physician Notes I personally examined the patient and verified all mccullough points of history and exam, discussed case, and agree with decision making with Dr Malin. sleeping - seen and chart reviewed in f/u from early AM admission. sleeping comfortably on multiple visits today. vitals noted nad breathing unlabored no accessory muscles good effort urinary sx / fever - infection superimposed on stenting? continue cipro for now, follow sx follow cx supportive care. otherwise as above. Subjective No acute events overnight. Eating well. toileting well. ambulating well. Review of Systems Genitourinary: + dysuria, + urinary urgency and + hematuria Physical Exam Constitutional: WD/WN, vitals as above + obese Eyes: + anicteric sclerae ENMT: external ear and nose normal, oropharynx normal Neck: normal visual inspection Respiratory: normal respiratory effort Skin: no rashes, warm and dry Psychiatric: A+Ox3, euthymic affect Results & Data Results & Data ([facility]) Vital Signs (Past 12 Hours) Vital Signs Temp Pulse Pulse Resp BP BP Pulse Ox 09/03/19 07:22 36.9 C 67 20 144/87 H 94 09/03/19 04:50 36.4 C L 70 20 152/90 H 92 09/03/19 04:00 71 20 163/98 H 92 09/03/19 02:48 70 18 140/76 92 09/03/19 01:30 75 18 124/80 93 09/03/19 00:04 71 19 146/90 H 90 09/02/19 22:30 36.4 C L 96 H 20 163/93 H 92 Resident Activity Tracking Resident Involvement: Resident Care Provided Care Provided: Adult Hospital Medicine
[2019-09-03 10:13] LABS: Basophils # (auto) 0.02 K/uL (0-0.2); Basophils % (auto) 0.3 %; Eosinophils # (auto) 0.19 K/uL (0-0.5); Eosinophils % (auto) 2.7 %; Hematocrit (blood only) 30.8 % (37-47); Hemoglobin 9.9 g/dL (12.0-16.0); Immature Granulocytes # (auto) 0.09 K/uL (0.00-0.02); Immature Granulocytes % (auto) 1.3 %; Lymphocytes # (auto) 1.36 K/uL (1.2-3.4); Lymphocytes % (auto) 19.2 %; Mean Corpuscular Hemoglobin 31.9 pg (25-34); Mean Corpuscular Hgb Conc 32.1 g/dL (32-36); Mean Corpuscular Volume 99.4 fL (80-100); Mean Platelet Volume 8.7 fL (7.4-10.4); Monocytes # (auto) 0.79 K/uL (0.11-0.59); Monocytes % (auto) 11.1 %; Neutrophils # (auto) 4.64 K/uL (1.4-6.5); Neutrophils % (auto) 65.4 %; Platelet Count 184 K/uL (130-400); RDW Coefficient of Variation 14.5 % (11.5-14.5); RDW Standard Deviation 51.3 fL (36.4-46.3); White Blood Count 7.09 K/uL (4.8-10.8)
[2019-09-03 10:28] LABS: Estimated Average Glucose 120 mg/dl; Hemoglobin A1C 5.8 % (4.5-5.6)
[2019-09-03 10:47] LABS: Albumin Level 2.8 gm/dl (3.4-5.0); BUN Creatinine Ratio 14.3 (10-20); Calcium 8.2 mg/dl (8.5-10.1); Est GFR (African American) 75.6; Est GFR (Non-African American) 65.2; Potassium 3.6 mmol/L (3.5-5.1)
[2019-09-03 10:49] LABS: Albumin Globulin Ratio 0.9 (0.9-2); Bilirubin,Total 0.5 mg/dl (0.2-1); Globulin 3.1 gm/dl (2.5-4.0); Total Protein 5.9 gm/dl (6.4-8.2)
[2019-09-03 10:55] LABS: Folate (Folic Acid) 15.06 ng/ml (>5.38)
--- NOTE | 2019-09-03 11:25 | Electrocardiogram Report ---
Test Reason : Blood Pressure : / mmHG Vent. Rate : 090 BPM Atrial Rate : 090 BPM P-R Int : 146 ms QRS Dur : 076 ms QT Int : 356 ms P-R-T Axes : 072 040 054 degrees QTc Int : 435 ms Poor data quality, interpretation may be adversely affected Normal sinus rhythm Nonspecific ST and T wave abnormality Abnormal ECG When compared with ECG of 17-JUL-2015 16:28, No significant change was found Confirmed by Will Terrell ([id number]) on 09/03/2019 11:25:47 AM Referred By: Tres Kolb Confirmed By:Will Terrell
[2019-09-03] MEDS: CIPROFLOXACIN 500 MG TAB PO SCH ×2 (12:37→21:21)
[2019-09-03] MEDS: predniSONE 5 MG TAB PO SCH (12:37)
[2019-09-03] MEDS: SPIRONOLACTONE 25 MG TAB PO SCH ×2 (12:37→16:41)
[2019-09-03] MEDS: KETOROLAC TROMETHAMINE 15 MG/ML VIAL IV PRN ×2 (17:12→23:33)
[2019-09-03] MEDS ORDERED: BENZOCAINE 20% AER SPR 82.5 GM CAN EXT PRN (18:04)
[2019-09-03] MEDS ORDERED: ALPRAZolam 0.25 MG TABLET PO ONE (18:39)
[2019-09-03] MEDS ORDERED: TAMSULOSIN HCL 0.4 MG CAP PO SCH (21:00)
--- NOTE | 2019-09-03 21:00 | Communication Note ---
Date of Service: September 03, 2019 PRN Pyridium ordered for this pt, per her request for persistent dysuria. 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
[2019-09-03] MEDS: PHENAZOPYRIDINE HCL 200 MG TAB PO PRN (21:58)
--- NOTE | 2019-09-04 02:10 | Billing Data ---
Date of Service September 04, 2019 Coding Level of Care Code 46171 Initial Inpt Care Lvl 2
[2019-09-04] MEDS: PHENAZOPYRIDINE HCL 200 MG TAB PO PRN ×2 (03:45→12:52)
[2019-09-04] MEDS: ACETAMINOPHEN 325 MG TAB PO PRN ×2 (03:47→07:53)
[2019-09-04] MEDS: KETOROLAC TROMETHAMINE 15 MG/ML VIAL IV PRN ×2 (05:53→12:53)
[2019-09-04] MEDS: LEVOTHYROXINE SODIUM 75 MCG TABLET PO SCH (05:54)
[2019-09-04 06:17] LABS: Basophils # (auto) 0.01 K/uL (0-0.2); Basophils % (auto) 0.1 %; Hematocrit (blood only) 31.2 % (37-47); Immature Granulocytes # (auto) 0.06 K/uL (0.00-0.02); Immature Granulocytes % (auto) 0.9 %; Lymphocytes # (auto) 1.32 K/uL (1.2-3.4); Lymphocytes % (auto) 19.5 %; Mean Corpuscular Hemoglobin 31.8 pg (25-34); Mean Corpuscular Hgb Conc 32.1 g/dL (32-36); Mean Corpuscular Volume 99.4 fL (80-100); Mean Platelet Volume 8.8 fL (7.4-10.4); Monocytes # (auto) 0.63 K/uL (0.11-0.59); Monocytes % (auto) 9.3 %; Neutrophils # (auto) 4.55 K/uL (1.4-6.5); Neutrophils % (auto) 67.2 %; Platelet Count 187 K/uL (130-400); RDW Coefficient of Variation 14.6 % (11.5-14.5); RDW Standard Deviation 51.5 fL (36.4-46.3); Red Blood Count 3.14 M/uL (4.2-5.4); White Blood Count 6.77 K/uL (4.8-10.8)
[2019-09-04 06:53] LABS: BUN Creatinine Ratio 15.6 (10-20); Calcium 8.7 mg/dl (8.5-10.1); Creatinine Clr Calc Pharmacy 71.1 ml/min; Est GFR (Non-African American) 57.8; Potassium 3.8 mmol/L (3.5-5.1)
[2019-09-04] MEDS: ALPRAZolam 0.5 MG TABLET PO SCH ×2 (07:53→12:52)
[2019-09-04] MEDS: predniSONE 5 MG TAB PO SCH (07:54)
[2019-09-04] MEDS: SPIRONOLACTONE 25 MG TAB PO SCH (07:54)
[2019-09-04] MEDS: CIPROFLOXACIN 500 MG TAB PO SCH (07:54)
[2019-09-04] MEDS ORDERED: ESCITALOPRAM OXALATE 10 MG TAB PO SCH (09:00)
--- NOTE | 2019-09-04 10:55 | Discharge Summary ---
Date of Service September 04, 2019 Admission HPI Per Admitting Provider Art Vizcarra is a 58 yo F w/ a pMHx. of GERD, HTN, hypothyroid, PCOS, sleep apnea, PMR, TMJ, shaquille's duct cyst and nephrolithiasis s/p lithotripsy on 08/[address] Kolb. After the procedure she had bleeding consistent with a period, and this improved after over the week following the procedure. She has had incontinence since the procedure and has been wearing a "depends" since the procedure. She has had urgency, and polyuria. She has had continued pain at the end of urination that has been constant since the procedure. Her urine is discolored due to medication but does not notice any change in the smell of her urine. The plan was to have the stent removed this week. She had an episode where her temp. was 100F after a shower and her HR with her watch was 110-120 and then went up to 130. She had called urology and was instructed to come in to the ER. Admission Exam Per Admitting Provider Constitutional: WD/WN, vitals as above Eyes: PERRL, conjunctivae normal, anicteric sclerae ENMT: external ear and nose normal, oropharynx normal Neck: normal visual inspection Respiratory: normal respiratory effort, lungs clear to auscultation Cardiovascular: RRR, no murmur, no edema Gastrointestinal (Abdomen): normal bowel sounds, soft, nontender, no hepatosplenomegaly Psychiatric: A+Ox3, euthymic affect Genitourinary: + CVA tenderness (right) Principal Diagnosis Dysuria Discharge Exam Constitutional WD/WN, vitals as above + obese Eyes + anicteric sclerae ENMT external ear and nose normal, oropharynx normal Neck normal visual inspection Respiratory normal respiratory effort Gastrointestinal (Abdomen) Inspection/Auscultation: normal bowel sounds Percussion/Palpation: + abdomen tender (RLQ, suprapubic region ) and abdomen soft Skin no rashes, warm and dry Psychiatric A+Ox3, euthymic affect Discharge Data Allergies Allergy/AdvReac Type Severity Reaction Status Date / Time Cephalosporins Allergy Severe Anaphylaxis Verified 09/02/19 23:25 cefuroxime Allergy Unknown ANAPHYLAXIS Verified 09/02/19 23:25 Iodinated Contrast Media Allergy Unknown Hives Verified 09/02/19 23:25 latex Allergy Unknown Unknown Verified 09/02/19 23:25 Penicillins Allergy Unknown Hives Verified 09/02/19 23:25 Sulfa (Sulfonamide Allergy Unknown Hives Verified 09/02/19 23:25 Antibiotics) adhesive Allergy Redness of Verified 09/02/19 23:25 Skin Consultations 09/03/19 02:18 ED Decision to Admit Stat 09/03/19 03:18 Consult Urology Routine Ordered Studies 09/03/19 00:30 CT abd pelvis wo con Urgent Hospital Course (1) Kidney stones: Ms. Vizcarra is a 58 yo F who underwent cystoscopy, laser lithotripsy, and R ureteral stent placement on 08/28/[address] Kolb who was admitted for persistent dysuria and urinary urgency. There was initial concern for post operative stent infection given persistent urinary symptoms and subjective report of fever and tachycardia by patient. On admission however, patient afebrile, vitals otherwise stable. WBC normal throughout admission, UA 1+ for bacteria, >30 WBCs, neg for nitrites and LE. Urine and blood cultures showing no growth through 24 hours, pending at the time of discharge. Abdominal CT scan confirmed proper stent placement with right periureteral edema although no obvious hydronephrosis. Clinical picture did not support infectious etiology, thus another plausible explanation for dysuria was thought to be from the stent itself. Patient was given 1 dose of Gentamicin in the ED and continued on Cipro 500mg, BID for full spectrum gram negative coverage. She was directed to continue for 3 days after discharge (total course of 10 days). She was directed to continue to take Flomax, daily and AZO as needed for discomfort with urination. She has a follow up scheduled with urology on 09/10/19 for consideration of stent removal. Antibiotic Allergies Patient has several concerning antibiotic allergies listed on her chart, including anaphylaxis with cephalosporins, and hives with penicillin and sulfonamides. It is unclear as to whether these represent true allergies Outpatient items to do: consider outpatient allergy referral for de- sensitization HTN - continue home dose Irbesartan Hypothyroidism - continue home levothyroxine PMR - continue home prednisone PCOS - holding Metformin while inpatient Elevated blood glucose - A1C at 5.8, in pre-diabetic range - may be secondary to chronic steroid therapy - patient on metformin 1,000mg for PCOS Outpatient items to do: diet/exercise counseling; consider increasing metformin to 1500 -2000mg daily (2) Acute UTI: Total Time Total Time Spent Total Time Spent (In Minutes): <30 Discharge Plan Discharge Items Patient Disposition: Home - Self-Care Reason For Visit: HYDRONEPHROSIS Discharge Diagnosis: Flank pain Activity: Resume your previous activity Non-emergency contact: Primary Care Provider and Urologist Call non-emergency contact if: your symptoms worsen Follow-up/Referrals: Tres Kolb MD [Physician] - 09/10/19 9:45 am (Please, follow up at [facility] Urology Office with Dr. Jamie Kolb on TuesdaySeptember 09 at 10:00 am (arrive 9:45 am). *The office is located at [address] in [place]. If you need to change this appointment or have any questions, call the office at [phone].) Heidi Faust DO [Primary Care Provider] - Diet: Heart Healthy Addtl Attending Provider Instructions: You were hospitalized at [facility] for evaluation of persistent urinary frequency and discomfort after your lithotripsy uretal stent placement on 08/28/19. You reported a fever and elevated heart rate prior to coming in, so there was an initial concern for a post-operative infection. However, whenever you arrived to the hospital, you did not have a fever and your heart rate was normal. Your white blood cell count was normal, which makes an infection less likely. A culture of your urine and blood were obtained, but showed no bacterial growth through a 24 hour period. You were treated with IV fluids and placed on antibiotics, however your clinical picture and laboratory findings do not show strong evidence of an infection. It is therefore possible that your symptoms are explained by discomfort from the stent that was recently placed. To be cautious, we recommend you continue to take the Cipofloxacin 500mg, twice daily for 3 more days after discharge. We wou ld like you to follow up with Urology in the office on 09/10/19 for consideration of stent removal. Please continue to take flomax on a daily basis and stay adequately hydrated, both of which will help you pass your stones. You may also continue to Phenazopyridine or "Azo" which can be purchased over the counter to reduced urinary bladder spasms. Pending Studies at Discharge: Yes Studies:: Blood and urine cultures Stand-Alone Forms: My [facility] [address], Smoking Cessation Medications and DC Order Prescriptions: New ciprofloxacin HCl [Cipro] 500 mg tablet 500 mg PO BID 3 Days Qty: 6 RF: 0 Continued tramadol 50 mg tablet 50 mg PO Q8H PRN (Reason: pain) Qty: 20 RF: 0 spironolactone 25 mg Tablet 25 mg PO BID RF: 0 irbesartan 75 mg Tablet 75 mg PO QAM RF: 0 tamsulosin 0.4 mg capsule 0.4 mg PO HS PRN (Reason: Pain) RF: 0 alprazolam 0.5 mg tablet 0.5 mg PO QID RF: 0 cyanocobalamin (vitamin B-12) 1,000 mcg/mL solution 1,000 mcg IM UD RF: 0 duloxetine 30 mg capsule,delayed release(DR/EC) 30 mg PO DAILY RF: 0 meloxicam 15 mg tablet 15 mg PO DAILY RF: 0 metformin 500 mg tablet extended release 24 hr 1,000 mg PO BID RF: 0 prednisone 5 mg tablet 5 mg PO DAILY RF: 0 Vitamin Plus Low Iron 27 mg iron- 1 mg tablet 1 tab PO DAILY RF: 0 levothyroxine [Synthroid] 75 mcg tablet 75 mcg PO DAILY RF: 0 Discharge Orders: Discharge Order (Routine); Ordered 09/04/19 Ordered By: Talia Malin Admission Data Admit Date/Time: 09/03/19 03:18 Attending Provider: Dennis Murry Admit Provider: Romario Gaming Primary Care Provider: Heidi Faust Other Providers: Orestes Millan ; Ray Schafer Other Interventions: Discharge Summary Assessment (RN) Last Done: 09/04/19 13:10 DC Date/Time DO NOT enter until pt leaves facility: 09/04/19 13:32 Supervising Physician Co-Signing Physician Notes I personally examined the patient and verified all mccullough points of history and exam, discussed case, and agree with decision making with Dr Malin. feeling better, voiding easier, less discomfort, wants to go home. vitals noted nad heent nc at mmm breathing unlabored no accessory muscles good effort skin no rashes no pallor or icterus neuro no focal deficits urinary symptoms, questionable infection, stent - safe for home. finish course of abx - can be extended if need be by urology. ongiong outpt urology f/u. otherwise as above. Resident Activity Tracking Resident Involvement: Resident Care Provided Care Provided: [facility]
--- NOTE | 2019-09-04 16:36 | Billing Data ---
Date of Service September 04, 2019 Coding Level of Care Code D/C Day Management <30 mins
== END 2019-09-04 13:32 | disposition home or self-care (01) ==
LOC: ED 22:25 → 2W 09-03 03:18 → SUATTDRO 09-03 03:18 → INTOOBSV 09-03 03:18 → 2W 09-03 04:07